=== PATIENT | male | born 1945 | race Caucasian/White ===

== ENCOUNTER 2018-07-20 13:49 | Inpatient (IN) | payer OTHER ==
[2018-07-20 14:22] LABS: PLATELET COUNT 191 10^3/uL (150-400)
[2018-07-20] MEDS ORDERED: ACETAMINOPHEN 500 MG TAB ONE (15:03)
--- NOTE | 2018-07-20 15:05 | EDPHY ---
H & P Stated Complaint: Sent by PCP for fever and chills. Was supposed to have Abx for cellulitis. Time Seen by Provider: 07/20/18 14:56 - Medical/Surgical History Hx Asthma: No Hx Chronic Respiratory Disease: No Hx Diabetes: No Hx Cardiac Disease: Yes Hx Renal Disease: No Hx Cirrhosis: No Hx Alcoholism: No Hx HIV/AIDS: No Hx Splenectomy or Spleen Trauma: No Other PMH: Hypertension - Social History Smoking Status: Never smoked Constitutional: Initial Vital Signs Temperature (C) 36.9 C 07/20/18 13:58 Heart Rate 73 07/20/18 13:58 Respiratory Rate 24 H 07/20/18 13:58 Blood Pressure 135/94 H 07/20/18 13:58 O2 Sat (%) 95 07/20/18 13:58 O2 Delivery Mode Room Air Allergies/Adverse Reactions: Influenza Virus Vaccines Allergy (Verified 07/20/18 14:02) Home Medications: Medication Instructions Recorded Acetaminophen/ASA/Caffeine 1 each PO Q6H PRN 07/20/18 [Excedrin Tablet (*)] Cetirizine [ZyrTEC 10 mg (*)] 10 mg PO DAILY PRN 07/20/18 Herbals/Supplements -Info Only 1 ea PO DAILY 07/20/18 Hydrochlorothiazide [HCTZ (*)] 25 mg PO DAILY 07/20/18 Medical Decision Making ED Course/Re-evaluation: CHIEF COMPLAINT: Facial rash, pain, fever HISTORY OF PRESENT ILLNESS: The patient is a 72 y/o male with a history of hypertension who arrives with his at the referral of his PCP for a progressive and painful facial rash now associated with fever and chills. He first noticed a red and painful rash above his right ear one week ago. Four or five days into this rash he developed associated fever and chills and last night the rash spread rapidly and "erupted over the top" of his scalp. It now covers his scalp from ear-to-ear and is over his forehead. He says, "anyplace the bone is near the surface it hurts." He has not been able to eat or drink much over the last 3 days due to malaise and reports feeling dehydrated. He denies vomiting, diarrhea, abdominal pain, neck pain, swallowing difficulty, or trismus. He saw his PCP today and was referred here or directly to ID for further management. He has not been on any antibiotics yet. He took Tylenol this morning without lasting improvement. REVIEW OF SYSTEMS: A comprehensive 10 system review of systems is otherwise negative aside from elements mentioned in the history of present illness and medical decision making. PHYSICAL EXAM: HR, BP, O2 Sat, RR. Temp noted General Appearance: Alert, well hydrated, appropriate, and non-toxic appearing. Head: Atraumatic without scalp tenderness or obvious injury. Erythema extending over entire scalp and forehead. Eyes: Pupils equal, round, reactive to light and accommodation, EOMI, no trauma , no injection. Nose: Atraumatic, no rhinorrhea, clear. Throat: There is no erythema or exudates, no lesions, normal tonsils, mucus membranes moist. Neck: Supple, non-tender, no lymphadenopathy. Respiratory: No retractions, no distress, no wheezes, and no accessory muscle use. Lungs are clear to auscultation bilaterally. Cardiovascular: Regular rate and rhythm, no murmurs, rubs, or gallops. Good capillary refill all extremities. Gastrointestinal: Abdomen is soft, non-tender, non-distended, no masses, no rebound, no guarding, no peritoneal signs. Musculoskeletal: Normal active ROM of all extremities, atraumatic. Neurological: Alert, appropriate, and interactive. The patient has non-focal cranial nerves, motor, sensory, and cerebellar exam. Skin: No rashes, good turgor, no nodules on palpation. PAST MEDICAL HISTORY: Hypertension - HCTZ PAST SURGICAL HISTORY: Noncontributory SOCIAL HISTORY: at bedside. Lives in [place]. PCP: Dr. Chase. DIFFERENTIAL DIAGNOSIS: The differential diagnosis for the patient's fever included but was not limited to cellulitis, erysipelas, pneumonia, urinary tract infection, viral syndrome, meningitis, and sepsis. MEDICAL DECISION MAKING: This is a 72 y/o male who presents with a 1-week history of progressive painful and erythematous scalp rash now associated with fever and chills. He describes the rash starting in his right parietal temporal area then extending over top of scalp and forehead over to his left ear. He does not rule in for initial sepsis screening. Plan for IV, labs, and symptom management. 1gm IV Ancef ordered for suspected erysipelas vs. cellulitis. WBC elevated. 1515: Consulted with Dr. Perry, ID. He agrees with antibiotic choice and plan for admission. Spoke with hospitalist service. Dr. Junior accepts admission. - Data Points Laboratory Results: Laboratory Results 07/20/18 14:10 07/20/18 14:10 07/20/18 07/20/18 07/20/18 15:36 14:10 14:10 WBC RBC Hgb Hct MCV MCH MCHC RDW Plt Count MPV Neut % (Auto) Lymph % (Auto) Stephenson % (Auto) Eos % (Auto) Baso % (Auto) Nucleat RBC Rel Count Absolute Neuts (auto) Absolute Lymphs (auto) Absolute Monos (auto) Absolute Eos (auto) Absolute Basos (auto) Absolute Nucleated RBC Immature Gran % Immature Gran # PT 14.5 SEC SEC (12.0-15.0) INR 1.11 (0.83-1.16) APTT 30.3 SEC SEC (23.0-38.0) VBG Lactic Acid 2.8 mmol/L H mmol/L (0.7-2.1) Sodium Potassium Chloride Carbon Dioxide Anion Gap BUN Creatinine Estimated GFR Glucose Calcium Total Bilirubin 0.8 mg/dL mg/dL (0.1-1.4) 07/20/18 07/20/18 14:10 14:10 WBC 15.55 10^3/uL H 10^3/uL (3.80-9.50) RBC 4.77 10^6/uL 10^6/uL (4.40-6.38) Hgb 15.4 g/dL g/dL (13.7-17.5) Hct 43.8 % % (40.0-51.0) MCV 91.8 fL fL (81.5-99.8) MCH 32.3 pg pg (27.9-34.1) MCHC 35.2 g/dL g/dL (32.4-36.7) RDW 12.8 % % (11.5-15.2) Plt Count 191 10^3/uL 10^3/uL (150-400) MPV 10.6 fL fL (8.7-11.7) Neut % (Auto) 75.1 % H % (39.3-74.2) Lymph % (Auto) 17.9 % % (15.0-45.0) Stephenson % (Auto) 6.1 % % (4.5-13.0) Eos % (Auto) 0.2 % L % (0.6-7.6) Baso % (Auto) 0.3 % % (0.3-1.7) Nucleat RBC Rel Count 0.0 % % (0.0-0.2) Absolute Neuts (auto) 11.69 10^3/uL H 10^3/uL (1.70-6.50) Absolute Lymphs (auto) 2.78 10^3/uL 10^3/uL (1.00-3.00) Absolute Monos (auto) 0.95 10^3/uL H 10^3/uL (0.30-0.80) Absolute Eos (auto) 0.03 10^3/uL 10^3/uL (0.03-0.40) Absolute Basos (auto) 0.04 10^3/uL 10^3/uL (0.02-0.10) Absolute Nucleated RBC 0.00 10^3/uL 10^3/uL (0-0.01) Immature Gran % 0.4 % % (0.0-1.1) Immature Gran # 0.06 10^3/uL 10^3/uL (0.00-0.10) PT INR APTT VBG Lactic Acid Sodium 136 mEq/L mEq/L (135-145) Potassium 3.1 mEq/L L mEq/L (3.3-5.0) Chloride 95 mEq/L L mEq/L (97-110) Carbon Dioxide 27 mEq/l mEq/l (22-31) Anion Gap 14 mEq/L mEq/L (6-14) BUN 22 mg/dL mg/dL (7-23) Creatinine 1.1 mg/dL mg/dL (0.7-1.3) Estimated GFR > 60 Glucose 105 mg/dL H mg/dL (70-100) Calcium 10.0 mg/dL mg/dL (8.5-10.4) Total Bilirubin Medications Given: Discontinued Medications Acetaminophen (Tylenol) 1,000 mg PO EDNOW ONE Stop: 07/20/18 15:14 Last Admin: 07/20/18 15:13 Dose: 1,000 mg Hydromorphone HCl (Dilaudid) 0.5 mg IVP EDNOW ONE Stop: 07/20/18 15:14 Last Admin: 07/20/18 15:18 Dose: 0.5 mg Sodium Chloride (Ns) 2,500 mls @ 5,000 mls/hr 30 ml/kg infuse over 30 min ( 2500 ml) IV EDNOW ONE PRN Reason: Protocol Stop: 07/20/18 15:37 Last Admin: 07/20/18 15:16 Dose: 2,500 mls Cefazolin Sodium/Dextrose (Ancef) 100 mls @ 200 mls/hr IV EDNOW ONE PRN Reason: Protocol Stop: 07/20/18 15:38 Last Admin: 07/20/18 15:52 Dose: 100 mls Ketorolac Tromethamine (Toradol) 30 mg IVP EDNOW ONE Stop: 07/20/18 15:19 Last Admin: 07/20/18 15:20 Dose: 30 mg Ondansetron HCl (Zofran) 4 mg IVP EDNOW ONE Stop: 07/20/18 15:16 Last Admin: 07/20/18 15:17 Dose: 4 mg Departure - Departure Condition: Fair Referrals: Sita Torres MD [Primary Care Provider] - As per Instructions Report Scribed for: Riley Maldonado Report Scribed by: Cassie Roberts Date of Report: 07/20/18 Time of Report: 14:59
[2018-07-20] MEDS ORDERED: KETOROLAC 30 MG/1 ML SDV ONE (15:08)
[2018-07-20] MEDS ORDERED: NS 2,500 ML IV ONE (15:08)
[2018-07-20] MEDS ORDERED: ONDANSETRON 4 MG/2 ML VIAL ONE (15:09)
[2018-07-20] MEDS ORDERED: ceFAZolin 2 GM/DEXTROSE 100 ML IV ONE (15:09)
[2018-07-20] MEDS ORDERED: HYDROmorphONE/DILAUDID 1 MG/ML INJ ONE (15:09)
[2018-07-20] MEDS ORDERED: ACETAMINOPHEN 500 MG TAB PO ONE (15:13)
[2018-07-20] MEDS ORDERED: HYDROmorphONE/DILAUDID 1 MG/ML INJ IVP ONE (15:13)
[2018-07-20] MEDS ORDERED: ONDANSETRON 4 MG/2 ML VIAL IVP ONE (15:15)
[2018-07-20] MEDS ORDERED: KETOROLAC 30 MG/1 ML SDV IVP ONE (15:18)
[2018-07-20 15:32] LABS: INR 1.11 (0.83-1.16); PROTIME(PATIENT) 14.5 SEC (12.0-15.0)
[2018-07-20] MEDS ORDERED: PROMETHAZINE HCL 25 MG/ML INJ IVP PRN (16:52)
[2018-07-20] MEDS: NS W/ 20 KCl/L 1,000 ML IV SCH (17:43)
[2018-07-20] MEDS: POTASSIUM CL 20 MEQ/15 ML UDCUP PO SCH (18:08)
[2018-07-20] MEDS ORDERED: ceFAZolin 2 GM in NS 50 ML IV SCH (22:00)
[2018-07-20] MEDS: HYDROCODONE/APAP 5/325 TAB PO PRN (23:10)
[2018-07-20] MEDS: ceFAZolin 2 GM/DEXTROSE 100 ML IV SCH (23:10)
--- NOTE | 2018-07-21 01:41 | GHP ---
DATE OF ADMISSION: 07/20/2018 CHIEF COMPLAINT: Redness of the scalp. HISTORY OF PRESENT ILLNESS: The patient is a pleasant 72-year-old gentleman with a past medical hist ory of hypertension who presented to the [facility] after developing f jamie and redness spreading around his scalp. His white blood cell count was elevated and he had mil dly elevated temperature and was felt to have symptoms consistent with erysipelas. Infectious Diseas e was consulted by the emergency room and it was recommended to start patient on Ancef. Patient john es any recent abrasions to the skin. It does sound like he has history of seborrheic dermatitis. PAST MEDICAL HISTORY: Hypertension. PAST SURGICAL HISTORY: Bilateral hernia repair, prostate surgery. MEDICATIONS: Hydrochlorothiazide. ALLERGIES: No known drug allergies. FAMILY HISTORY: Mother from "old age." Dad from lung adenocarcinoma. SOCIAL HISTORY: Patient does have 1 child. He is a nonsmoker. REVIEW OF SYSTEMS: CONSTITUTIONAL: No complaints of any chills or rigors. ENT: No recent upper re spiratory illnesses. CARDIOVASCULAR: No complaints of any chest pains or palpitations. RESPIRATORY : No complaints of shortness of breath or productive cough. GI: No nausea, vomiting, diarrhea, or constipation. : No reports of any difficulty with urination. NEUROLOGIC: No complaints of heada ches or focal weakness. HEMATOLOGIC: No history of any deep vein thrombosis or pulmonary embolism. PSYCHIATRIC: No anxiety or depression history. ENDOCRINE: No polyuria or heat intolerance. SKIN: Other than this spreading erythema on his scalp, no other skin rashes. MUSCULOSKELETAL: No focal joint pains or swelling. PHYSICAL EXAMINATION: VITAL SIGNS: Temperature 37.9, blood pressure 142/81, heart rate 83, respirat ions 24, satting 97% on room air. GENERAL: Patient appears comfortable, nontoxic, awake, alert, con versant. No acute distress. HEENT: Extraocular movements intact. No scleral icterus. NECK: Supp le. No adenopathy appreciated. CHEST: Clear on auscultation with normal respiratory effort. HEART : Regular rate and rhythm. No murmurs. ABDOMEN: Soft, nontender, nondistended. : No Hugo cat heter in place. EXTREMITIES: No significant pitting edema. NEUROLOGIC: Cranial nerves 2-12 grossl y intact with 5/5 strength in extremities. SKIN: Patient has notable erythema around his scalp. Th ere is no area of fluctuance or purulent collections noted. LABORATORY DATA: White blood cell count 15, hemoglobin 15, platelets 191. Sodium 136, potassium 3.1 , chloride 95, bicarb 27, BUN 22, creatinine 1.1, glucose 105. Lactic acid was 2.8 and 1.5 on reasse ssment. PTT 30, INR 1.1. ASSESSMENT AND PLAN: Cellulitis. Blood cultures have been taken in the emergency room. Continue wi th Ancef as recommended. Reassess in the morning. Leukocytosis. Trend with current antibiotic therapy. Hypokalemia. Replacement has been ordered. Lactic acidosis, resolved. Hypertension. We will hold antihypertensive overnight. Deep vein thrombosis prophylaxis. Lovenox. DISPOSITION: I will admit him under observation status. /[id number]/MODL
[2018-07-21] MEDS: NS W/ 20 KCl/L 1,000 ML IV SCH ×2 (02:30→16:36)
[2018-07-21 05:13] LABS: PLATELET COUNT 142 10^3/uL (150-400)
[2018-07-21 05:39] LABS: CREATINE KINASE 88 IU/L (0-224)
[2018-07-21] MEDS: diphenhydrAMINE 25 MG CAP PO PRN ×2 (05:58→19:26)
[2018-07-21] MEDS: ceFAZolin 2 GM/DEXTROSE 100 ML IV SCH ×2 (08:47→16:36)
[2018-07-21] MEDS: ACETAMINOPHEN 325 MG TAB PO PRN (08:47)
[2018-07-21] MEDS: ENOXAPARIN 40 MG/0.4 ML SYR SC SCH (09:44)
[2018-07-21] MEDS: POTASSIUM CL 20 MEQ/15 ML UDCUP PO SCH (09:44)
[2018-07-21] MEDS: HYDROCODONE/APAP 5/325 TAB PO PRN ×2 (09:48→18:11)
--- NOTE | 2018-07-21 11:14 | HOSPPROG ---
Hospitalist Progress Note Assessment/Plan: Cellulitis: - Started on Ancef in ED after consulting ID, will continue for now - Patient reports some worsening of swelling and pruritis this morning - Blood cultures x2 collected - Lactic acid trended down to 1.5 from 2.8 on admission, s/p abx and IVF Hypokalemia - K 3.4 this AM - Replacement ordered - Continue to monitor Leukocytosis - 2/2 to cellulitis as above Lactic Acidosis - Resolved as above Ppx: SubQ Lovenox Dispo: Pending clinical course Subjective: Patient reports increased swelling and itching this morning Objective: Vital Signs Temp Pulse Resp BP Pulse Ox 37.3 C 74 18 98/54 L 94 07/21/18 08:00 07/21/18 08:00 07/21/18 08:00 07/21/18 08:00 07/21/18 08:00 Laboratory Results 07/21/18 04:41 07/21/18 04:41 07/20/18 07/21/18 07/22/18 05:59 05:59 05:59 Intake Total 3800 Balance 3800 PT 14.5 SEC (12.0-15.0) 07/20/18 14:10 INR 1.11 (0.83-1.16) 07/20/18 14:10 - Physical Exam Constitutional: no apparent distress Eyes: PERRL Ears, Nose, Mouth, Throat: moist mucous membranes Cardiovascular: regular rate and rhythym Respiratory: no respiratory distress Gastrointestinal: soft, non-tender abdomen Genitourinary: No thompson in urethra Skin: warm, erythema, rash Musculoskeletal: full muscle strength Neurologic: AAOx3 Psychiatric: interacting appropriately ICD10 Worksheet Patient Problems: Problems Problem Status Onset Cellulitis Acute Erysipelas Acute - ICD10 Problem Qualifiers (1) Erysipelas (2) Cellulitis
--- NOTE | 2018-07-21 12:34 | GCON ---
INFECTIOUS DISEASE CONSULT DATE OF CONSULTATION: 07/21/2018 REQUESTING PHYSICIAN: Dr. Flynn Almonte REASON FOR CONSULT: To assist in the management of this 72-year-old male with facial cellulitis. HISTORY OF PRESENT ILLNESS: The patient is a very pleasant 72-year-old male whose previous medical history is notable for the followin. Hypertension. 2. Squamous cell carcinoma of the scalp, status post excision 2 years ago. Regarding his present issues, the patient tells me that they were visiting relatives for several days in [facility], and approximately 10 days ago he developed some itching on the right side of his scalp. The patient states that he normally has seborrhea and uses Head and Shoulders, but because they were traveling he could not use his usual shampoos. He felt that the itching was secondary to worsening seborrhea in the absence of his shampoo. He states that the pruritus continued and he was scratching his scalp a fair amount , and then this past Monday evening they returned from [facility]. On Monday, the patient states that he felt achy with chills, and his noticed some erythema on his scalp. The redness began at the same time his flu symptoms began. He denies any respiratory symptoms or nasal congestion. He states he called his hose builder, Dr. Lagos, but could not get an appointment so saw Family Practice on Monday morning who was very concerned at the erythema on his scalp and sent him immediately to the emergency room for further evaluation and treatment. In the emergency room, the patient had a temperature to 37.9, his white blood cell count was elevated at 15.5, and the patient clearly had a facial cellulitis. He was started on Ancef, and I am now asked to assist in his management. Speaking with the patient today, he tells me that the flu-like symptoms are gone. Both he and his feel that the redness on his scalp is perhaps worse today, but overall he feels better. His white blood cell count is down to 10. Previous medical history as outlined above. PREVIOUS SURGICAL HISTORY: Bilateral hernia repairs, prostate surgery. REVIEW OF SYSTEMS: Notable for some pruritus in his scalp, but there is no history of vesicular lesions, no pustules. The patient denies any history of MRSA. He has not been putting any creams, oils, or lotions on his scalp and is now using his usual Head and Shoulders shampoo. He does describe an antecedent sore throat the prior to development of the cellulitis. Review of systems as outlined above, otherwise 10 systems are reviewed and all are negative. MEDICATIONS: Presently include: Cefazolin 2 g IV q.8 hours, Lovenox, and Tylenol. ALLERGIES: Influenza vaccine. SOCIAL HISTORY: The patient has a very supportive and lives here in [place]. 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 No pets. Recent travel to [facility] to visit in-laws, but no unusual exposures, or pet exposures, or scratches while he was there. He enjoys photography and traveling. He is an avid hiker. FAMILY HISTORY: Noncontributory. PHYSICAL EXAM: VITAL SIGNS: T-current is 37.3, T-max 37.9, heart rate 74, blood pressure 98/54, 94% on 1 L. GENERAL: Patient is lying in bed, does not look toxic. Clearly has a facial cellulitis. HEENT: The patient's orbits are normal with some mild skin and soft-tissue swelling, which I will outline below , around his right eye. Extraocular movements are intact. Pupils are equal, round, and reactive. No discharge from the nares or evidence of vestibulitis. Mucous membranes are moist. No oral lesions noted. Dentition in fair repair. No sinus process tenderness. The external ears look fine. NECK: There are some shotty lymph nodes, right greater than left, that are slightly tender in the submandibular area. Trachea is midline. No thyromegaly or palpable thyroid nodules. CARDIOVASCULAR: S1, S2. No rubs, gallops, or murmurs. LUNGS : No increased respiratory effort. Clear to auscultation bilaterally with no rales, rhonchi, or wheeze. ABDOMEN: Soft. No organomegaly or tenderness to palpation. EXTREMITIES: No muscle belly tenderness, clubbing, cyanosis, or edema. The patient has onychomycosis of his toenails bilaterally with no tinea pedis. NEUROLOGIC: He is alert and oriented x3 with no focal deficits. SKIN: The patient has blanching erythema throughout the top of his scalp that extends posteriorly with sharply demarcated margins beneath the hairline posteriorly and around his ears. The erythema also spreads to the top of his nasal bridge with some mild skin and soft-tissue swelling around his right preseptal area that does not involve the orbits. The erythema extends down to his malar area and his cheek. Again, erythematous borders are sharply demarcated. There is no evidence of pustules or vesicles. There is mild tenderness of the area, but not out of proportion to exam findings. No hypesthesia. LABORATORY DATA: Microbiologic data: Blood cultures x2 are pending. White blood cell count of 10, down from 15.5 on admission, hematocrit 35, platelet count 142, 68% neutrophils. Venous lactate 2.9 on admission, now is 1.5. BUN and creatinine 27/1.1. AST 26, ALT 32, alkaline phosphatase of 47, and CK of 88, albumin of 3. IMAGING: No radiographic data. IMPRESSION: 72-year-old otherwise healthy male with facial erysipelas. Suspect underlying scalp irritation from seborrhea contributed to this infection. There is no pustular or vesicular component. Suspect streptococci as most likely culprit given sharply demarcated borders of erythema although Staphylococcus aureus can certainly have this appearance as well. No evidence of varicella. No findings concerning for orbital cellulitis, sinusitis, or otitis. PLAN: 1. Continue antibiotics in the form of cefazolin 2 g IV q.8 hours. Explained to the patient that the cellulitis can look worse before it gets better, but clinically he is improved with resolution of flu-like symptoms and resolving leukocytosis. 2. Do not feel the patient needs an antitoxin antibiotic such as clindamycin or linezolid. 3. Suspect thrombocytopenia is related to his overall illness, which should improve with time. Thank you very much for consulting Infectious Diseases. We will continue to follow this patient with you. /[id number]/MODL MTDD
--- NOTE | 2018-07-21 13:18 | ASMTCMCOM ---
CM Note CM Note Notes: Pt has been admitted with scalp/facial cellulitis. ID is following and he is currently on IV Ancef with cultures pending. He lives with his here in [place]. CM will follow for any d/c needs. Date Signed: 07/21/2018 01:17 PM Electronically Signed By:HARLEY Jane
[2018-07-21] MEDS: MELATONIN 3 MG TAB PO PRN (22:41)
[2018-07-22] MEDS: NS W/ 20 KCl/L 1,000 ML IV SCH ×2 (00:18→10:21)
[2018-07-22] MEDS: ceFAZolin 2 GM/DEXTROSE 100 ML IV SCH ×4 (00:19→23:40)
[2018-07-22] MEDS: HYDROCODONE/APAP 5/325 TAB PO PRN ×2 (00:25→08:09)
[2018-07-22 05:22] LABS: PLATELET COUNT 153 10^3/uL (150-400)
[2018-07-22] MEDS: POTASSIUM CL 20 MEQ/15 ML UDCUP PO SCH (08:10)
[2018-07-22] MEDS: ENOXAPARIN 40 MG/0.4 ML SYR SC SCH (08:10)
[2018-07-22] MEDS: diphenhydrAMINE 25 MG CAP PO PRN ×3 (08:12→21:54)
--- NOTE | 2018-07-22 09:43 | PCMIDPN ---
Assessment/Plan: 1. Facial erysipelas in normal host: The erythema over his right cheek is more brick red today, but his left pinna looks slightly worse, as does the nape of his neck and periorbital edema, although there is no extension beyond the demarcated borders. Would continue Ancef as is; I think he just needs more time to improve. He does not have risk factors for MRSA. White blood cell count is down, flu-like symptoms have resolved, and platelet count is up. Conveyed need for more time to patient today, who expressed understanding. No evidence for orbital cellulitis, sinusitis, or otitis. Subjective: The swelling of preseptal tissues around his right eye is slightly worse, as well as his left pinna, but erythema over right cheek is more brick red, and not beet red. Along the nape of his neck, the erythema has not extended beyond the demarcated borders, although it is more raised today and does appear beet red. Continues to otherwise feel okay. Resolution of flu-like symptoms continues. No diarrhea. Objective: Ancef 2 g IV q.8 hours day 1 T-max 37.2 degrees Vital Signs Temp Pulse Resp BP Pulse Ox 36.8 C 49 L 18 118/78 94 07/22/18 08:00 07/22/18 08:00 07/22/18 08:00 07/22/18 08:00 07/22/18 08:00 Laboratory Results 07/22/18 05:00 07/21/18 04:41 07/21/18 07/22/18 07/23/18 05:59 05:59 05:59 Intake Total 3800 1600 Balance 3800 1600 Blood cultures x2 pending - Physical Exam General Appearance: alert, no apparent distress Skin: other (Patient has pinkish erythema scattered throughout his scalp, and forehead, extending over right cheek and stopping at the bridge of his nose. There is an increase in soft tissue swelling in the preseptal area around his right eye, as well as slightly around the left. There is swelling of the left ear, with concomitant erythema. The nape of his neck is notable for no extension of erythema beyond the demarcated borders. The erythema looks slightly more pronounced today in this area, and is raised. No bullae or vesicles. No sinus process tenderness. No tug tenderness of the ear. The nose itself looks okay. No evidence of vestibulitis.) ICD10 Worksheet Patient Problems: Problems Problem Status Onset Cellulitis Acute Erysipelas Acute
--- NOTE | 2018-07-22 11:04 | HOSPPROG ---
Hospitalist Progress Note Assessment/Plan: Cellulitis: - Started on Ancef in ED after consulting ID - Discussed with ID, Dr. Cabrera this morning, who recommends continued Ancef - Blood cultures x2 collected- NGTD - Lactic acid trended down to 1.5 from 2.8 on admission, s/p abx and IVF Hypokalemia - K 3.4 - Replacement ordered - Continue to monitor Leukocytosis - 2/2 to cellulitis as above Lactic Acidosis - Resolved as above Ppx: SubQ Lovenox Dispo: Pending clinical course Subjective: Patient reports some areas of worsening redness in his face Objective: Vital Signs Temp Pulse Resp BP Pulse Ox 36.8 C 49 L 18 118/78 94 07/22/18 08:00 07/22/18 08:00 07/22/18 08:00 07/22/18 08:00 07/22/18 08:00 Laboratory Results 07/22/18 05:00 07/21/18 04:41 07/21/18 07/22/18 07/23/18 05:59 05:59 05:59 Intake Total 3800 1600 Balance 3800 1600 PT 14.5 SEC (12.0-15.0) 07/20/18 14:10 INR 1.11 (0.83-1.16) 07/20/18 14:10 - Physical Exam Constitutional: no apparent distress Eyes: PERRL Ears, Nose, Mouth, Throat: moist mucous membranes Cardiovascular: regular rate and rhythym Respiratory: no respiratory distress Gastrointestinal: soft, non-tender abdomen Genitourinary: No thompson in urethra Skin: erythema, rash Musculoskeletal: full muscle strength Neurologic: AAOx3 Psychiatric: interacting appropriately ICD10 Worksheet Patient Problems: Problems Problem Status Onset Cellulitis Acute Erysipelas Acute - ICD10 Problem Qualifiers (1) Erysipelas (2) Cellulitis
--- NOTE | 2018-07-22 11:59 | PDMN ---
Medical Necessity Medical necessity: [facility] M70 Cellulitis: 72 yo presents w/ cellulitis (erysipelas ) to scalp, s/sx include redness to site, leukocytosis, RR24, lactic acid 2.8. Pt admit initially OBS and started on IV Ancef after ID consult, IVF. Overnight there is a report of worsening swelling and pruritis to site. BCX2 collected and pending. ID cont to follow and pt will need ongoing IV antibx as appearance of cellulitis site seems to be worse (swelling around R eye, right cheek more 'brick red'). Pt will require another MN for ongoing IV antibx and IV fluids. Hx HTN. Change to IP status 07/21/18 @1533 per MD order
[2018-07-22] MEDS: MELATONIN 3 MG TAB PO PRN (21:53)
[2018-07-22] MEDS: ACETAMINOPHEN 325 MG TAB PO PRN (21:57)
[2018-07-23] MEDS: ACETAMINOPHEN 325 MG TAB PO PRN (02:32)
[2018-07-23] MEDS: diphenhydrAMINE 25 MG CAP PO PRN (03:37)
[2018-07-23] MEDS ORDERED: IBUPROFEN 200 MG TAB PO PRN (06:04)
[2018-07-23 08:26] VITALS: BP 125/78
[2018-07-23] MEDS: ceFAZolin 2 GM/DEXTROSE 100 ML IV SCH (09:08)
[2018-07-23] MEDS: ENOXAPARIN 40 MG/0.4 ML SYR SC SCH (09:09)
[2018-07-23] MEDS: POTASSIUM CL 20 MEQ/15 ML UDCUP PO SCH (09:48)
--- NOTE | 2018-07-23 13:51 | PCMIDPN ---
Assessment/Plan: Assessment: Facial cellulitis-clearly improved on IV Ancef. Improved enough to switch over to oral Keflex 500 mg p.o. 4 times a day for discharge. Total duration of treatment should be 10 days. Follow-up with primary care physician. Plan: 1. Change IV Ancef to p.o. Keflex 500 mg 4 times daily. 2. Discharge home with follow-up with primary care physician within 1-2 weeks. 07/23/18 13:49 Subjective: Patient is walking around his room. is visiting. He has no new complaint. He states that his redness and swelling of his face is significantly improved. No fevers. Objective: Cefazolin # 2 Vital Signs Temp Pulse Resp BP Pulse Ox 37.0 C 55 L 16 125/78 H 95 07/23/18 08:00 07/23/18 08:00 07/23/18 08:00 07/23/18 08:00 07/23/18 08:00 Laboratory Results 07/22/18 05:00 07/22/18 07/23/18 07/24/18 05:59 05:59 05:59 Intake Total 1600 1500 Balance 1600 1500 - Physical Exam General Appearance: WD/WN, alert, no apparent distress, non-toxic EENT: other (Facial area for had and periocular area on the right side slightly edematous. Slightly erythematous. Nontender. No discharge.) Cardiac/Chest: regular rate, rhythm, No tachycardia Skin: normal color, warm/dry, No rash Neuro/Psych: alert, normal mood/affect, oriented x 3 ICD10 Worksheet Patient Problems: Problems Problem Status Onset Cellulitis Acute Erysipelas Acute
--- NOTE | 2018-07-23 14:07 | PDDCSUM ---
Discharge Summary Discharge Summary: Date of Admission: 07/21/2018 Date of Discharge: 07/23/2018 Consults: ID Followup: PCP Hospital Course Problem List: Cellulitis: - Started on Ancef in ED after consulting ID - Discussed with ID, Dr. Perry, who recommends patient be discharged on Keflex 500 mg QID for total 10 day course, end date 08/30 - Blood cultures x2 collected- NGTD - Lactic acid trended down to 1.5 from 2.8 on admission, s/p abx and IVF Hypokalemia - K 3.4 - Replacement ordered - Continue to monitor Leukocytosis - 2/2 to cellulitis as above Lactic Acidosis - Resolved as above Ppx: SubQ Lovenox Time spent on discharge is >35 minutes with >50% of time spent on patient education and counseling.
--- NOTE | 2018-07-23 14:17 | ASMTCMCOM ---
CM Note CM Note Notes: CM spoke to Dr. Almonte regarding d/c POC. Pts iv ancept has been discontinued. Pt does not have any d/c needs at this time. CM available for changes. Plan: Independent Date Signed: 07/23/2018 02:17 PM Electronically Signed By:LAURA Frost
[2018-07-23] MEDS ORDERED: CEPHALEXIN 500 MG CAP PO SCH (18:00)
== END 2018-07-23 16:30 | disposition home or self-care (01) | DRG 603 ==
LOC: F3E 17:38 → OBSVTOIN 07-21 15:33
PROVIDERS: ADMIT Internal Medicine; ATTEND Internal Medicine
DX: A46 Erysipelas (principal); L03.211 Cellulitis of face; E87.2 Acidosis; E86.9 Volume depletion, unspecified; E87.6 Hypokalemia; I10 Essential (primary) hypertension; Z85.828 Personal history of other malignant neoplasm of skin
CPT/HCPCS: 96374; G0378; J0690; J1170; J1650; J1885; J2405